=== PATIENT | male | born 1960 | race Caucasian/White ===

== ENCOUNTER 2018-05-15 12:12 | Emergency (ER) | payer OTHER ==
[~2018-05-15] VITALS: Ht 170.2 cm; Wt 72.6 kg
== END 2018-05-15 17:14 | disposition home or self-care (01) ==
LOC: ER 12:12
DX: S09.8XXA Other specified injuries of head, initial encounter (principal); W11.XXXA Fall on and from ladder, initial encounter; Y93.89 Activity, other specified; Y92.89 Other specified places as the place of occurrence of the external cause; Y99.8 Other external cause status; M25.532 Pain in left wrist

== ENCOUNTER 2020-09-25 08:36 | Emergency (ER) | payer OTHER ==
[~2020-09-25] VITALS: Ht 170.2 cm; Wt 74.8 kg
== END 2020-09-25 12:50 | disposition home or self-care (01) ==
LOC: ER 08:36
DX: N20.1 Calculus of ureter (principal); R10.32 Left lower quadrant pain